=== PATIENT | male | born 1980 | race Caucasian/White ===

== ENCOUNTER 2018-07-26 08:55 | Emergency (ER) | payer SELFPAY ==
[2018-07-26] MEDS ORDERED: Tetracaine 0.5% OPTH.SOL 4 ML* 1 DROP BTL BOTH EYES ONE (09:00)
[2018-07-26] MEDS ORDERED: Fluorescein Sodium TOPICAL* 1 MG TEST STRIP OPHTHALMIC ONE (09:01)
[2018-07-26 09:10] VITALS: BP 153/85
[2018-07-26] MEDS ORDERED: oxyCODONE/Acetamin 5/325 MG* TAB PO ONE (09:30)
[2018-07-26] MEDS ORDERED: Ketorolac INJ* 60 MG/2 ML VIAL IM ONE (09:40)
[2018-07-26] MEDS ORDERED: Erythromycin OPTH OINT* APPLIC OINT LEFT EYE ONE (09:41)
--- NOTE | 2018-07-26 09:43 | ED ---
Throat Pain/Nasal Congestion - HPI Summary HPI Summary: This patient is a 38-year-old male who presents to the urgent care with chief complaint of left I pain. He reports that he was working at his house and there was some wheezing which blew into his face and since then the patient is having some pain in the left eye. He reports that he thinks that he has a foreign body in the left eye for the last 3 days. The pain is 10 out of 10 and he has some photophobia, and erythema in the eye. He has no other complaints. He reports no decreased patient patient. - History of Current Complaint Chief Complaint: UCEye Time Seen by Provider: 07/26/18 09:00 - Allergies/Home Medications Allergies/Adverse Reactions: Allergies Allergy/AdvReac Type Severity Reaction Status Date / Time No Known Allergies Allergy Verified 07/26/18 09:11 PMH/Surg Hx/FS Hx/Imm Hx Previously Healthy: Yes Endocrine/Hematology History: Denies: Hx Diabetes, Hx Thyroid Disease Cardiovascular History: Denies: Hx Hypertension Respiratory History: Denies: Hx Asthma, Hx Chronic Obstructive Pulmonary Disease (COPD) GI History: Denies: Hx Ulcer Psychiatric History: Reports: Hx Substance Abuse - IV drug use Infectious Disease History: No Infectious Disease History: Denies: Hx Clostridium Difficile, Hx Hepatitis, Hx Human Immunodeficiency Virus (HIV), Hx of Known/Suspected MRSA, Hx Shingles, Hx Tuberculosis, Hx Known/ Suspected VRE, Hx Known/Suspected VRSA, History Other Infectious Disease, Traveled Outside the [place] in Last 30 Days - Family History Known Family History: Positive: None Negative: Cardiac Disease - Social History Alcohol Use: Daily Alcohol Amount: 6-12 beers daily Substance Use Type: Reports: Cocaine, Heroin Substance Use Comment - Amount & Last Used: pt last used IV Heroin this past ; amount unk to pt Hx Tobacco Use: Yes Smoking Status (MU): Current Every Day Smoker Type: Cigarettes Amount Used/How Often: 1/2 PPD Have You Smoked in the Last Year: Yes Review of Systems Constitutional: Negative Eyes: Other Positive: Photophobia, Other - Eye FB ENT: Negative Cardiovascular: Negative Respiratory: Negative Gastrointestinal: Negative Genitourinary: Negative Musculoskeletal: Negative Skin: Negative Neurological: Negative All Other Systems Reviewed And Are Negative: Yes Physical Exam - Summary Physical Exam Summary: Vital signs: Reviewed Gen.: Patient is a well developed and nourished male in no acute distress. Patient is sitting comfortably on the stretcher. Head: Normacephalic and atraumatic Eyes: PERRLA, EOMI x2. Left eye BB at 3 oclock Ears: Right ear canal and TM WNL and Left ear canal and TM WNL Nose and mouth: WNL Neck: Supple, Positive bilateral submandibular and anterior cervical lymphadenopathy. No JVD Lungs: CTA B/L CVS: S1 & S2 present. No murmurs appreciated. ABDOMEN: Soft NT w/ positive BS. EXT: FROM x 4 NEURO: A+O X 3. Triage Information Reviewed: Yes Vital Signs On Initial Exam: Initial Vitals Temp Pulse Resp BP Pulse Ox 98.7 F 100 20 153/85 100 07/26/18 09:07 07/26/18 09:07 07/26/18 09:07 07/26/18 09:07 07/26/18 09:07 Vital Signs Reviewed: Yes Diagnostics - Vital Signs Vital Signs Temp Pulse Resp BP Pulse Ox 07/26/18 09:07 98.7 F 100 20 153/85 100 - Laboratory Lab Statement: Any lab studies that have been ordered have been reviewed, and results considered in the medical decision making process. EENT Course/Dx - Course Assessment/Plan: In the urgent care he using tetracaine I was able to open the eye and foreign body at approximately 3:00. I attempted multiple times and with a foreign body and I was able to remove some of the foreign body however they still had leftover she is embedded in the cornea. Therefore I recommended for the patient to go to the ER at [facility] for an ophthalmology consult. The patient was given Toradol for the pain and he was placed with tetracycline equipment as well as an eye patch. The patient understands and he will be going to [facility] ER. Patient is hemodynamically stable alert and oriented 3. - Diagnoses Provider Diagnoses: Corneal foreign body Discharge - Sign-Out/Discharge Documenting (check all that apply): Patient Departure All imaging exams completed and their final reports reviewed: No Studies - Discharge Plan Condition: Stable Disposition: HOME Patient Education Materials: Eye Foreign Body (ED) Referrals: [facility] [Outside] No Primary Care Phys,NOPCP [Primary Care Provider] - Additional Instructions: Patient is discharged to go to ED at [facility] for ophthalmology consult. - Billing Disposition and Condition Condition: STABLE Disposition: Home
== END 2018-07-26 10:00 | disposition home or self-care (01) ==
LOC: UCEAST 08:55
DX: T15.02XA Foreign body in cornea, left eye, initial encounter (principal); X58.XXXA Exposure to other specified factors, initial encounter; Y92.9 Unspecified place or not applicable; F17.210 Nicotine dependence, cigarettes, uncomplicated
CPT/HCPCS: 65220; 96372; 99212; A9270-GY; G0463; J1885